=== PATIENT | female | born 1965 | race Caucasian/White ===

== ENCOUNTER 2017-06-25 19:07 | Emergency (ER) | payer MEDICAID, OTHER ==
[~2017-06-25] VITALS: Ht 162.6 cm; Wt 60.5 kg
[2017-06-25 19:12] VITALS: Ht 162.6 cm; Wt 60.5 kg
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
--- NOTE | 2017-06-25 22:22 | RADRPT ---
PROCEDURE: XR shoulder. CLINICAL INDICATION: Pain TECHNIQUE: Four views of the right shoulder were performed, the AP projection labeled erect. COMPARISON: None available. FINDINGS: There is normal mineralization and alignment. No fracture or osseous lesion is identified. The joint spaces are preserved. The soft tissues are unremarkable. RPTAT:HJJR IMPRESSION: Unremarkable right shoulder series. Physician Samuel Date Time Electronically viewed and signed by Fausto Mathur Physician on 06/25/2017 22:22 /
--- NOTE | 2017-06-25 22:23 | RADRPT ---
PROCEDURE: XR Lumbar Spine. CLINICAL INDICATION: Low back pain. TECHNIQUE: AP, cone-down lateral, and lateral views of the lumbar spine were obtained. COMPARISON: None. FINDINGS: Mineralization is within normal limits. Vertebral bodies are normal in height. No fracture is iden tified. Lumbar lordosis is preserved. No vertebral subluxation is seen. Moderate degenerative disc narrowing and endplate sclerosis is present at L5-S1. The remaining intervertebral discs are normal in height. Paraspinal contours are unremarkable. RPTAT:HJJR IMPRESSION: L5-S1 degenerative disc narrowing, otherwise unremarkable three view series of the lumbar spine. Physician Samuel Date Time Electronically viewed and signed by Physician Samuel on 06/25/2017 22:23 /
[2017-06-25] MEDS ORDERED: ACET500C5 PO (22:32)
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
== END 2017-06-25 22:47 | disposition home or self-care (01) ==
LOC: FTE 19:07
DX: R51 Headache (principal); M54.5 Low back pain; M25.511 Pain in right shoulder
CPT/HCPCS: 70450; 72100; 73030; Z7502